=== PATIENT | female | born 1980 ===

== ENCOUNTER 2017-05-26 16:45 | Inpatient (IN) | payer OTHER ==
[~2017-05-26] VITALS: Ht 165.1 cm; Wt 160.0 kg
== END 2017-05-28 14:00 | disposition home or self-care (01) | DRG 775 ==
LOC: LDR 16:45 → OB/GYN 16:45 → LDR 16:45 → OB/GYN 22:33
PROC: 10E0XZZ Delivery of Products of Conception, External Approach (ICD-10-PCS; principal; 2017-05-26)
PROC: 0KQM0ZZ Repair Perineum Muscle, Open Approach (ICD-10-PCS; 2017-05-26)
PROC: 0W8NXZZ Division of Female Perineum, External Approach (ICD-10-PCS; 2017-05-26)
PROC: 10907ZC Drainage of Amniotic Fluid, Therapeutic from Products of Conception, Via Natural or Artificial Opening (ICD-10-PCS; 2017-05-26)
PROC: 4A1HXCZ Monitoring of Products of Conception, Cardiac Rate, External Approach (ICD-10-PCS; 2017-05-26)
DX: O70.1 Second degree perineal laceration during delivery (principal); Z37.0 Single live birth; Z3A.38 38 weeks gestation of pregnancy; O09.513 Supervision of elderly primigravida, third trimester